=== PATIENT | female | born 1945 | race Asian ===

== ENCOUNTER 2019-06-23 18:11 | Emergency (ER) | payer OTHER ==
[2019-06-23 19:21] VITALS: TEMP 98.7; BMI 24.1
--- NOTE | 2019-06-23 20:12 | PDOC ---
History of Present Illness - General Chief Complaint: Chest Pain Stated Complaint: SENT BY PCP/CHEST PAIN Time Seen by Provider: 06/23/19 19:44 - History of Present Illness Initial Comments: 06/23/19 22:45 74 y/o F hx of HTN, presenting with 5 days of intermittent chest pain. Pain is located in center of her chest and radiates to her left shoulder. Occurs both at rest and on exertion and lasts a few minutes each time. She was seen at [facility] where a new systolic murmur was detected and her BP was 198/64. She was instructed Past History - Past Medical History Allergies/Adverse Reactions: Allergies Allergy/AdvReac Type Severity Reaction Status Date / Time No Known Allergies Allergy Verified 06/23/19 19:21 Home Medications: Ambulatory Orders Nebivolol [Bystolic -] 5 mg PO DAILY 06/23/19 COPD: No - Immunization History Immunization Up to Date: Yes - Psycho Social/Smoking Cessation Hx Smoking History: Never smoked Hx Alcohol Use: No Drug/Substance Use Hx: No Review of Systems - Review of Systems Constitutional: No: Chills, Fever HEENTM: No: Eye Pain, Blurred Vision Respiratory: No: Cough, Hemoptysis Cardiac (ROS): Yes: Chest Pain. No: Syncope ABD/GI: No: Nausea, Vomiting : No: Burning, Dysuria Musculoskeletal: Yes: Back Pain Integumentary: No: Bruising, Change in Color Neurological: No: Headache, Numbness Endocrine: No: Excessive Sweating *Physical Exam - Vital Signs Last Vital Signs Temp Pulse Resp BP Pulse Ox 98.7 F 80 16 150/80 99 06/23/19 19:18 06/23/19 19:18 06/23/19 19:18 06/23/19 19:18 06/23/19 19:18 - Physical Exam 06/23/19 23:16 PE: GENERAL: Awake, alert, and fully oriented, in no acute distress HEAD: No signs of trauma, normocephalic, atraumatic EYES: PERRLA, EOMI, sclera anicteric, conjunctiva clear ENT: Auricles normal inspection, hearing grossly normal, nares patent, oropharynx clear without exudates. Moist mucosa NECK: Normal ROM, supple, no lymphadenopathy, JVD, or masses LUNGS: No distress, speaks full sentences, clear to auscultation bilaterally HEART: Regular rate and rhythm, normal S1 and S2, systolic murmur, peripheral pulses normal and equal bilaterally. ABDOMEN: Soft, nontender, normoactive bowel sounds. No guarding, no rebound. No masses EXTREMITIES : Normal inspection, Normal range of motion, no edema. No clubbing or cyanosis NEUROLOGICAL: Cranial nerves II through XII grossly intact. Normal speech, normal gait, no focal sensorimotor deficits SKIN: Warm, Dry, normal turgor, no rashes or lesions noted ED Treatment Course - LABORATORY CBC & Chemistry Diagram: 06/23/19 21:46 06/23/19 21:46 Medical Decision Making - Medical Decision Making 06/23/19 23:39 elevated d-dimer on lab evaluation. -no mediastinal widening on CXR -pt with no shortness of breath, tachycardia or other P.E risk factors low suspicion for P.E. However, nature of labs explained to patient and risk/benefits of CTA and she agrees not to get CTA Dr. Singh (covering for patients educational interpreter Dr. Guidry) was consulted. He is aware of new onset systolic murmur and patients labs Agrees that patient will need further evaluation but that can be done either with prompt outpatient follow up or admission, since and echocardiogram would only be done on Wednesday Pt would like to go home and agrees with follow up. She is aware that her care is not complete until she follows up with the educational interpreter She has equally been given strict return precuations for the ED. 06/23/19 23:48 Discharge - Discharge Information Problems reviewed: Yes Clinical Impression/Diagnosis: Cardiac murmur, unspecified Chest pain Qualifiers: Chest pain type: unspecified Qualified Code(s): R07.9 - Chest pain, unspecified Condition: Stable Disposition: HOME - Admission No - Follow up/Referral Referrals: Silvia Lucia [Primary Care Provider] - Cayden Monet MD [Staff Physician] - Steven Aldridge MD [Staff Physician] - - Patient Discharge Instructions Patient Printed Discharge Instructions: DI for Chest Pain Additional Instructions: HOME CARE INSTRUCTIONS: For the next few days, avoid physical activities that bring on chest pain. Do not smoke and avoid drinking alcohol. Only take [id number] or prescription medicine for pain, discomfort, or fever. Follow your physician's suggestions for further testing if your chest pain does not go away. MAKE SURE TO MAKE A FOLLOW UP APPOINTMENT TO SEE YOUR VEGETABLE LOADER FOR FURTHER EVALUATION SEEK IMMEDIATE MEDICAL CARE IF: You have increased chest pain or pain that spreads to your arm, neck, jaw, back, or abdomen. You develop shortness of breath, an increasing cough, or you start coughing up blood. You have severe back or abdominal pain, feel nauseous, or vomit You develop severe weakness, fainting, or chills. You have a fever. THESE ARE EMERGENCIES - Do not drive yourself to the hospital. - Post Discharge Activity
[2019-06-23 22:22] LABS: BASO % 1.3 % (0-2.0); EOS % 1.9 % (0-4.5); HEMATOCRIT 43.1 % (32.4-45.2); LYMPH % 27.3 % (8-40); MCH 28.2 pg (25.7-33.7); MCHC 32.5 g/dl (32.0-36.0); MEAN CELL VOLUME 86.9 fl (80-96); MEAN PLT VOLUME 8.5 fl (7.5-11.1); MONO % 7.5 % (3.8-10.2); PLATELET COUNT 294 K/MM3 (134-434); RBC 4.96 M/mm3 (3.60-5.2); RDW 13.1 % (11.6-15.6); WHITE BLOOD COUNT 7.5 K/mm3 (4.0-10.0)
--- NOTE | 2019-06-23 22:35 | PDOC ---
Documentation entered by Tara Sarmiento SCRIBE, acting as scribe for Rosa M Slater MD. Rosa M Slater MD: This documentation has been prepared by the Guillermina todd Joy, SCRIBE, under my direction and personally reviewed by me in its entirety. I confirm that the documentation accurately reflects all work, treatment, procedures, and medical decision making performed by me. Attending Attestation - Resident Resident Name: LowellBraxton - ED Attending Attestation I have performed the following: I have examined & evaluated the patient, The case was reviewed & discussed with the resident, I agree w/resident's findings & plan, Exceptions are as noted - HPI HPI: 06/23/19 21:17 The patient is a 74 year old female (family of Dr. Mathew), with significant PMH of HTN, cardiac history (Dr. Monet), who presents to the emergency department today for evaluation of chest pain (sent by PCP, Dr. Lucia). As per patient, 5 days ago she picked up the edge of her bed to clean the carpet and since then started experiencing pain around her sternum and across her chest; she also states that the pain radiates from her scapula to her left arm, and has neck pain. The patient endorses that her pain is not constant, the pain starts, stops for a while, and starts again. The patient describes the pain as not severe nor debilitating. Patient adds that she works and sits down a lot. Patient is also complaining of jaw pain that occurs when she is [place]--as per her son, this is the most exertion that the patient gets. Patient reports that she is having this pain every time she walks up those stairs. Saw PCP today who reported a systolic murmur. Patient was not told of a murmur at her check up 3 months ago. Also reports some intermittent back pain that is of moderate intensity. The patient denies, shortness of breath, headache and dizziness. Denies fever, chills, nausea, vomiting, diarrhea and constipation. Denies dysuria, frequency, urgency and hematuria. Allergies: NKA Social history: No reported PCP: Dr. Silvia Lucia - Physicial Exam PE: 12/13/19 21:19 GENERAL: Awake, alert, and fully oriented, in no acute distress HEAD: No signs of trauma NECK: Normal ROM, supple, no lymphadenopathy, JVD, or masses LUNGS: Breath sounds equal, clear to auscultation bilaterally. No wheezes, and no crackles HEART: +2/6 systolic murmurs. Regular rate and rhythm, normal S1 and S2 ABDOMEN: Soft, nontender, normoactive bowel sounds. No guarding, no rebound. No masses EXTREMITIES: Normal range of motion, no edema. No clubbing or cyanosis. No cords, erythema, or tenderness NEUROLOGICAL: Cranial nerves II through XII grossly intact. Normal speech, normal gait SKIN: Warm, Dry, normal turgor, no rashes or lesions noted. 06/23/19 22:32 - Medical Decision Making 06/23/19 22:32 Pt presents to the ED complaining of a several week history of intermittent chest pain, which is worse today. + systolic murmur which appears to be new. Currently chest pain free. Differential includes ACS, muscular pain, unlikely aortic dissection or PE. EKG shows no evidence of ischemia. given ASA 324 prior to arrival by her son. Will check labs and admit to medicine for continued monitoring. 06/23/19 22:35
[2019-06-23 22:42] LABS: INR 0.93 (0.83-1.09)
[2019-06-23 22:44] LABS: ACTIVATED PTT 36.2 SECONDS (25.2-36.5)
[2019-06-23 22:45] LABS: ALBUMIN 3.9 g/dl (3.4-5.0); BILIRUBIN,TOTAL 0.4 mg/dL (0.2-1); BLOOD UREA NITROGEN 18.8 mg/dL (7-18); CALCIUM 9.3 mg/dL (8.5-10.1); CREATININE 1.1 mg/dL (0.55-1.3); TOT PROT 7.5 g/dl (6.4-8.2)
[2019-06-24 00:08] VITALS: BP 147/75; PULSE 76
--- NOTE | 2019-06-25 10:14 | EKG ---
Test Reason : Blood Pressure : / mmHG Vent. Rate : 058 BPM Atrial Rate : 058 BPM P-R Int : 188 ms QRS Dur : 088 ms QT Int : 436 ms P-R-T Axes : 050 -16 042 degrees QTc Int : 428 ms SINUS BRADYCARDIA POSSIBLE LEFT ATRIAL ENLARGEMENT BORDERLINE ECG NO PREVIOUS ECGS AVAILABLE Confirmed by BISMARK FAGAN MD ([id number]) on 06/25/2019 10:14:08 AM Referred By: Confirmed By:BISMARK FAGAN MD
== END 2019-06-24 00:07 | disposition home or self-care (01) ==
LOC: JER 18:11
DX: R07.9 Chest pain, unspecified (principal); R01.1 Cardiac murmur, unspecified; I10 Essential (primary) hypertension
CPT/HCPCS: 36415; 71046-TC-FY; 80053; 82550; 82553; 84484; 85025; 85379; 85610; 85730; 93005; 93010; 99283-25